=== PATIENT | male | born 2000 | race Caucasian/White ===

== ENCOUNTER 2025-03-16 15:19 | Inpatient (IN) | payer OTHER ==
[~2025-03-16] VITALS: Ht 172.7 cm; Wt 81.8 kg
[2025-03-16 15:57] LABS: PLATELET COUNT (AUTO) 314 K/uL (150-450); RED BLOOD CELL COUNT(AUTO) 5.14 MIL/uL (4.50-5.90); RED CELL DISTRIBUTION WIDTH 14.0 % (11.5-14.5); WHITE BLOOD COUNT (AUTO) 7.0 K/uL (4.5-11.0)
[2025-03-16 16:04] LABS: CALCIUM, TOTAL 8.7 mg/dL (8.8-10.5); CREATININE 0.82 mg/dL (0.60-1.30); GLOMERULAR FILTR. RATE CALC > 60 mL/min (>60); GLUCOSE,RANDOM 91 mg/dL (70-110); SODIUM SERUM 137 mmol/L (136-145); UREA NITROGEN, BLOOD 11 mg/dL (7-18)
[2025-03-16 16:13] LABS: ALCOHOL, BLOOD (SERUM) < 3 mg/dL (0-10)
[2025-03-16] MEDS ORDERED: ONDANSETRON HCL 4 MG/2 ML VIAL IVP PRN (17:15)
[2025-03-16] MEDS ORDERED: ACETAMINOPHEN 325 MG TABLET PO PRN (17:15)
[2025-03-16 17:47] LABS: COVID AG,FIA SOURCE NPH
[2025-03-16 17:57] LABS: APPEARANCE,URINE CLEAR (CLEAR); GLUCOSE, URINE (UA) NEGATIVE (NEGATIVE); LEUKOCYTE ESTERASE ,URINE NEGATIVE (NEGATIVE); NITRATE,URINE NEGATIVE (NEGATIVE); OCCULT BLOOD,URINE NEGATIVE (NEGATIVE); PH,URINE DRUG SCREEN 6.5 (5.0-8.0); SPECIFIC GRAVITIY, URINE 1.031 (1.003-1.030)
[2025-03-16 18:03] LABS: ALCOHOL, URINE DRUG SCREEN NEGATIVE (NEGATIVE); AMPHET/METH SCREEN,URINE POSITIVE (NEGATIVE); BARBITURATE SCREEN, URINE NEGATIVE (NEGATIVE); CANNABINOID SCREEN,URINE POSITIVE (NEGATIVE); COCAINE SCREEN,URINE NEGATIVE (NEGATIVE); METHADONE SCREEN, URINE NEGATIVE (NEGATIVE)
[2025-03-16] MEDS: SODIUM CHLORIDE 0.9% 1,000 ML IV ONE (18:15)
[2025-03-16 18:16] LABS: SARS-COV2 (COVID) ANTIGEN,FIA Negative (Negative)
[2025-03-16 21:05] VITALS: BP 130/80; PULSE 85; RESP 17; TEMP 98.1; O2SAT 96
[2025-03-16] MEDS: ZOLPIDEM TARTRATE 5 MG TABLET PO PRN (21:11)
[2025-03-17 04:42] VITALS: BP 120/67; PULSE 70; RESP 18; TEMP 98.1; O2SAT 100
[2025-03-17 08:00] VITALS: BP 124/78; PULSE 81; RESP 20; TEMP 97.9; O2SAT 100
[2025-03-17] MEDS: FAMOTIDINE 20 MG TABLET PO SCH (08:33)
[2025-03-17] MEDS: BICTEGRAV/EMTRICIT/TENOFOV ALA 50-200-25 MG TABLET PO SCH (08:52)
[2025-03-17 21:12] VITALS: BP 162/56; PULSE 57; RESP 17; TEMP 98.6; O2SAT 99
[2025-03-17] MEDS: NITROGLYCERIN 2% (1 GM=INCH) OINTMENT PACKET TP ONE (22:11)
[2025-03-17 23:15] VITALS: BP 145/50; PULSE 60
[2025-03-18 05:06] VITALS: BP 110/74; PULSE 63; RESP 17; TEMP 97.5; O2SAT 100
[2025-03-18 08:00] VITALS: BP 102/59; PULSE 77; RESP 17; TEMP 97.9; O2SAT 100
[2025-03-18 16:00] VITALS: BP 106/71; PULSE 68; RESP 16; TEMP 97.9; O2SAT 100
[2025-03-18 20:00] VITALS: BP 124/62; PULSE 67; RESP 18; TEMP 98.2; O2SAT 99
[2025-03-19 04:00] VITALS: BP 108/61; PULSE 57; RESP 18; TEMP 98.4; O2SAT 100
[2025-03-19 08:50] VITALS: BP 102/67; PULSE 72; RESP 17; TEMP 98.2; O2SAT 98
[2025-03-19] MEDS ORDERED: OLAN5TAB52 PO (13:05)
== END 2025-03-19 20:26 | DRG 93 ==
LOC: EMS 15:22 → EDH 17:04 → 6S 21:05
PROVIDERS: ADMIT Internal Medicine; ATTEND Internal Medicine
PROC: GZ56ZZZ Individual Psychotherapy, Supportive (ICD-10-PCS; principal; 2025-03-17)
PROC: GZ52ZZZ Individual Psychotherapy, Cognitive (ICD-10-PCS; 2025-03-19)
DX: G92.9 Unspecified toxic encephalopathy (principal); F15.159 Other stimulant abuse with stimulant-induced psychotic disorder, unspecified; F20.9 Schizophrenia, unspecified; F31.9 Bipolar disorder, unspecified; F90.9 Attention-deficit hyperactivity disorder, unspecified type; Z20.822 Contact with and (suspected) exposure to COVID-19
CPT/HCPCS: 80048; 80307; 81003; 84443; 85025; 96360; 99285; G0480; 36415-L1; 36415-TC